=== PATIENT | male | born 1945 | race Caucasian/White ===

== ENCOUNTER 2023-04-07 10:47 | Outpatient (CLI) | payer MEDICARE, OTHER | END 2023-04-07 10:48 | disposition home or self-care (01) | LOC: BICCT 10:47 | PROVIDERS: ATTEND Registered Nurse | DX: Z12.2 Encounter for screening for malignant neoplasm of respiratory organs (principal); Z87.891 Personal history of nicotine dependence | CPT/HCPCS: 71271 ==